=== PATIENT | male | born 1990 | race Two or more races ===

== ENCOUNTER 2016-08-02 09:01 | Emergency (ER) | payer MEDICAID ==
[~2016-08-02] VITALS: Ht 188 cm; Wt 88.6 kg
[2016-08-02] MEDS ORDERED: KETOROLAC 30 MG/ML VIAL (J1885) IV ONE (09:45)
[2016-08-02] MEDS ORDERED: MORPHINE 4 MG/ML 1ML SYRINGE IV ONE (09:45)
[2016-08-02] MEDS ORDERED: ONDANSETRON 4MG/2ML VIAL (J2405) IV ONE (09:45)
--- NOTE | 2016-08-02 09:48 | REP ---
Clinical: Right shoulder pain. Technique: Internal rotation, external rotation of the right shoulder. Findings: Anteroinferior glenohumeral joint dislocation is appreciated. No obvious acute fracture. Impression: Anteroinferior glenohumeral joint dislocation Signed by Aki Davies MD 08/02/2016 09:40 A
[2016-08-02 10:38] VITALS: BP 136/87
--- NOTE | 2016-08-02 10:55 | REP ---
Right shoulder series: Three views. History: Post reduction. Findings: The right glenohumeral articulation is normally aligned. There is a little flattening of the superolateral aspect of the humeral head raising question of Hill-Sachs deformity. No Bankart lesion is seen. The acromioclavicular joint is normally aligned. Impression: Glenohumeral joint is reduced. Question Hill-Sachs impaction fracture possibly old. Signed by Brennan Barr MD 08/02/2016 03:22 P
== END 2016-08-02 10:40 | disposition home or self-care (01) ==
LOC: M ED 09:01
DX: S43.001A Unspecified subluxation of right shoulder joint, initial encounter (principal); M24.411 Recurrent dislocation, right shoulder; X50.0XXA Overexertion from strenuous movement or load, initial encounter; Y92.39 Other specified sports and athletic area as the place of occurrence of the external cause; Y93.B3 Activity, free weights; Y99.8 Other external cause status

== ENCOUNTER → 2016-10-19 | Outpatient (REF) | payer OTHER | LOC: M SFHCLERA 16:17 | PROVIDERS: ATTEND Family Medicine | DX: E78.00 Pure hypercholesterolemia, unspecified (principal); R73.03 Prediabetes; Z53.9 Procedure and treatment not carried out, unspecified reason ==

== ENCOUNTER → 2016-10-24 | Outpatient (REF) | payer OTHER | LOC: M SFHCLERA 08:37 | PROVIDERS: ATTEND Family Medicine | DX: E78.00 Pure hypercholesterolemia, unspecified (principal); R73.03 Prediabetes ==

== ENCOUNTER 2018-01-01 13:58 | Emergency (ER) | payer BC, OTHER | END 2018-01-01 15:05 | disposition home or self-care (01) | LOC: M ED 13:58 | DX: M24.411 Recurrent dislocation, right shoulder (principal) | CPT/HCPCS: 73030 ==

== ENCOUNTER 2018-09-16 19:15 | Emergency (ER) | payer BC ==
[~2018-09-16] VITALS: Ht 188 cm; Wt 84.1 kg
[2018-09-16] MEDS ORDERED: KEFL500C17 PO (23:11)
[2018-09-16] MEDS ORDERED: HYDR-3363 PO (23:11)
[2018-09-16] MEDS ORDERED: PRED20TA PO (23:11)
[2018-09-16] MEDS ORDERED: hydrOXYzine 25 MG TAB PO ONE (23:15)
[2018-09-16] MEDS ORDERED: methylPREDNISolone INJ 125 MG/2 ML VIAL (J2930) IM ONE (23:15)
[2018-09-16 23:17] VITALS: BP 136/77
== END 2018-09-16 23:26 | disposition home or self-care (01) ==
LOC: M ED 19:15
DX: T78.40XA Allergy, unspecified, initial encounter (principal); Y92.410 Unspecified street and highway as the place of occurrence of the external cause; Y93.9 Activity, unspecified
CPT/HCPCS: 96372; 99283; J2930